=== PATIENT | female | born 2005 | race Two or more races ===

== ENCOUNTER 2025-07-02 16:51 | Emergency (ER) | payer BC ==
[~2025-07-02] VITALS: Ht 165.1 cm; Wt 56.7 kg
[2025-07-02] MEDS ORDERED: AUGMENTIN125 MG/5 M PO (18:41)
[2025-07-02] MEDS ORDERED: LIDOCAINE HCL 1% 10ML VIAL ONE (20:16)
[2025-07-02] MEDS ORDERED: ACETAMINOPHEN 500 MG GEL..CAP PO ONE (20:31)
[2025-07-02] MEDS ORDERED: LIDOCAINE HCL 1% 2ML VIAL IJ ONE (21:45)
[2025-07-02] MEDS ORDERED: ACETAMINOPHEN 325 MG TABLET PO ONE (21:45)
== END 2025-07-02 21:55 | disposition home or self-care (01) ==
LOC: ER 16:51
DX: S01.321A Laceration with foreign body of right ear, initial encounter (principal); W01.0XXA Fall on same level from slipping, tripping and stumbling without subsequent striking against object, initial encounter; Y93.67 Activity, basketball; Y92.89 Other specified places as the place of occurrence of the external cause; Z88.8 Allergy status to other drugs, medicaments and biological substances